=== PATIENT | female | born 1970 | race Asian ===

== ENCOUNTER 2021-03-12 19:45 | Emergency (ER) | payer OTHER ==
[~2021-03-12] VITALS: Ht 152.4 cm; Wt 54.4 kg
[2021-03-12 20:27] VITALS: BP 127/76
--- NOTE | 2021-03-12 20:34 | NUR ---
TO LOBBY FOLLOWING TRIAGE
--- NOTE | 2021-03-12 20:55 | NUR ---
PT AMBULATED TO BED 07.
[2021-03-12] MEDS ORDERED: IBUPROFEN 800 MG TAB PO ONE (21:50)
[2021-03-12] MEDS ORDERED: ACYCLOVIR 200 MG CAP PO ONE (21:50)
--- NOTE | 2021-03-12 21:55 | NUR ---
EKG PERFORMED AT BEDSIDE. EKG READS SINUS RHYTHM @ 67
[2021-03-12] MEDS ORDERED: TROL10CR TP (22:04)
[2021-03-12] MEDS ORDERED: IBUP-2218 PO (22:04)
[2021-03-12] MEDS ORDERED: ACYC-278 PO (22:04)
[2021-03-12 22:22] VITALS: BP 127/76
--- NOTE | 2021-03-12 23:43 | NUR ---
Patient discharged with v/s stable. Written and verbal after care instructions given and explained. Patient alert, oriented and verbalized understanding of instructions. Ambulatory with steady gait. All questions addressed prior to discharge. ID band removed. Patient advised to follow up with PMD. Rx of ACYCLOVIR, MOTRIN, AND TROLAMINE given. Patient educated on indication of medication including possible reaction and side effects. Opportunity to ask questions provided and answered.
== END 2021-03-12 23:43 | disposition home or self-care (01) ==
LOC: MED 19:45
DX: B02.9 Zoster without complications (principal); R06.00 Dyspnea, unspecified; Z79.899 Other long term (current) drug therapy
CPT/HCPCS: 71045; 93005; 99283

== ENCOUNTER 2021-04-01 19:00 | Emergency (ER) | payer OTHER ==
[~2021-04-01] VITALS: Ht 152.4 cm; Wt 55.3 kg
[~2021-04-01 19:00] MED LIST: ACYC-278 PO; IBUP-2218 PO; TROL10CR TP
[2021-04-01 19:23] VITALS: BP 128/72
[2021-04-01] MEDS ORDERED: MORPHINE SULFATE 4 MG/ML SYR IM ONE (19:40)
[2021-04-01] MEDS ORDERED: ONDANSETRON 4 MG ODT PO ONE (19:40)
[2021-04-01 20:10] LABS: BASOPHILS # (AUTO) 0.1 K/uL (0.00-0.22); BASOPHILS % (AUTO) 0.6 % (0.0-2.0); HEMATOCRIT 34.2 % (36-48); HEMOGLOBIN 11.8 g/dL (12.0-16.0); LYMPHOCYTES # (AUTO) 2.7 K/uL (2.5-16.5); LYMPHOCYTES % (AUTO) 29.2 % (20.5-51.1); MEAN CORPUSCULAR HEMOGLOBIN 32 pg (27-31); MEAN CORPUSCULAR HGB CONC 34 g/dL (33-37); MEAN CORPUSCULAR VOLUME 91.4 fL (80-94); MONOCYTES # (AUTO) 0.6 K/uL (0.8-1.0); MONOCYTES % (AUTO) 6.6 % (1.7-9.3); NEUTROPHILS # (AUTO) 5.8 K/uL (1.8-7.7); NEUTROPHILS % (AUTO) 63.6 % (42.2-75.2); PLATELET COUNT (AUTO) 369 K/uL (140-450); RED BLOOD CELL COUNT(AUTO) 3.74 MIL/uL (4.20-5.40); RED CELL DISTRIBUTION WIDTH 13.5 % (11.6-13.7); WHITE BLOOD COUNT (AUTO) 9.1 K/uL (4.8-10.8)
[2021-04-01 20:34] LABS: ALBUMIN 3.3 g/dL (3.4-5.0); ANION GAP 10.3 (8-16); CARBON DIOXIDE 30.2 mmol/L (21-32); CREATININE 0.9 mg/dL (0.6-1.3); POTASSIUM 3.5 mmol/L (3.5-5.1); TOTAL BILIRUBIN 0.3 mg/dL (0.0-1.0)
[2021-04-01 20:47] LABS: BILIRUBIN,URINE NEGATIVE (NEGATIVE); COLOR,URINE YELLOW (YELLOW); NITRITE, URINE NEGATIVE (NEGATIVE); PH,URINE 6.5 (5.0-9.0); UGLUCOSE NEGATIVE (NEGATIVE)
[2021-04-01 21:02] LABS: APPEARANCE,URINE HAZY (CLEAR); BLOOD, URINE TRACE (NEGATIVE); LEUKOCYTE ESTERASE ,URINE 2+ (NEGATIVE); RBC,URINE 0-5 /HPF (0-5); WBC,URINE 60-80 /HPF (0-5)
[2021-04-01] MEDS ORDERED: CEPH-588 PO (21:13)
[2021-04-01] MEDS ORDERED: ACET-8386 PO (21:13)
[2021-04-01] MEDS ORDERED: GABA300C PO (21:13)
== END 2021-04-01 21:38 | disposition home or self-care (01) ==
LOC: MED 19:00
DX: N39.0 Urinary tract infection, site not specified (principal); B02.29 Other postherpetic nervous system involvement; Z79.899 Other long term (current) drug therapy
CPT/HCPCS: 36415; 76705; 80053; 81001; 81025; 83690; 85025; 87086; 96372; 99284; J2270; Q0162

== ENCOUNTER 2024-03-07 13:13 | Emergency (ER) | payer OTHER ==
[~2024-03-07] VITALS: Ht 152.4 cm; Wt 62.8 kg
[~2024-03-07 13:13] MED LIST changes: +ACET-8905 PO; +CEPH-588 PO; +GABA300C PO
[2024-03-07 13:21] VITALS: BP 107/79; PULSE 96; RESP 19; TEMP 98.2; O2SAT 96
== END 2024-03-07 14:32 | disposition left against medical advice (07) ==
LOC: MED 13:13
DX: M79.643 Pain in unspecified hand (principal); Z53.21 Procedure and treatment not carried out due to patient leaving prior to being seen by health care provider
CPT/HCPCS: 99281